=== PATIENT | male | born 1995 | race Two or more races ===

== ENCOUNTER 2018-01-16 17:50 | Emergency (ER) | payer OTHER ==
[~2018-01-16] VITALS: Ht 165.1 cm; Wt 49.9 kg
== END 2018-01-16 19:44 | disposition home or self-care (01) ==
LOC: ED 17:50
DX: H57.11 Ocular pain, right eye (principal); Z88.8 Allergy status to other drugs, medicaments and biological substances
CPT/HCPCS: 99282